=== PATIENT | female | born 1945 | race Caucasian/White ===

== ENCOUNTER → 2017-01-09 | Outpatient (CLI) | payer OTHER, MEDICARE | LOC: CIMAGING 10:14 | PROVIDERS: ATTEND Family Medicine | DX: Z12.31 Encounter for screening mammogram for malignant neoplasm of breast (principal) | CPT/HCPCS: G0202 ==

== ENCOUNTER → 2017-01-29 | Outpatient (CLI) | payer OTHER, MEDICARE | LOC: CIMAGING 10:11 | PROVIDERS: ATTEND Family Medicine | DX: R91.1 Solitary pulmonary nodule (principal); J43.2 Centrilobular emphysema; I25.10 Atherosclerotic heart disease of native coronary artery without angina pectoris | CPT/HCPCS: 71250-PO ==

== ENCOUNTER → 2017-10-24 | Outpatient (CLI) | payer OTHER, MEDICARE | LOC: BHFA 09:00 | PROVIDERS: ATTEND Internal Medicine Cardiovascular Disease | DX: I44.2 Atrioventricular block, complete (principal) | CPT/HCPCS: 78452; 93017; A9500; J2785 ==

== ENCOUNTER 2017-10-31 06:48 | Day surgery (SDC) | payer OTHER, MEDICARE ==
[2017-10-31] MEDS ORDERED: ASPIRIN EC 325 MG TAB PO ONE (06:55)
[2017-10-31] MEDS ORDERED: FAMOTIDINE 20 MG TAB PO ONE (06:55)
[2017-10-31] MEDS ORDERED: diphenhydrAMINE 25 MG CAP PO ONE (06:55)
[2017-10-31] MEDS ORDERED: DIAZEPAM 5 MG TAB PO ONE (06:55)
[2017-10-31] MEDS ORDERED: NS 1,000 ML IV ONE (06:55)
--- NOTE | 2017-10-31 07:21 | CPEKG ---
Heart Rate: 71 RR Interval: 845 P-R Interval: 220 QRSD Interval: 134 QT Interval: 412 QTC Interval: 448 P [place]: 43 QRS [place]: -67 T Wave [place]: 65 EKG Severity - ABNORMAL ECG - EKG Impression: ATRIAL-SENSED VENTRICULAR-PACED RHYTHM Electronically Signed By: Ravi Sanchez 01-Nov-2017 07:00:42
[2017-10-31 07:44] LABS: PLATELET COUNT 248 10^3/uL (150-400)
[2017-10-31 07:53] LABS: INR 1.08 (0.83-1.16); PROTIME(PATIENT) 14.2 SEC (12.0-15.0)
--- NOTE | 2017-10-31 08:23 | PDPROPOC ---
Sedation Plan of Care Sedation Plan of Care: vital signs stable, mental status noted, patient educated of risks, benefits, alternatives, patient can tolerate sedation ASA Classification: ASA 2 Planned drugs: fentanyl, midazolam Mallampati Score: Class 2 Mallampati Reference Image: Patient passed 3-3-2 rule?: Yes
--- NOTE | 2017-10-31 08:23 | PDHPUP ---
History & Physical Update H&P update statement: This history and physical update is based on an assessment of the patient which was completed after admission or registration (within 24 hours), but prior to the surgery/procedure. H&P update: H&P reviewed & patient examined, no change in patient's condition since H&P completed
--- NOTE | 2017-10-31 09:23 | PDDXCAT ---
Diagnostic Cath Note - . Date: 10/31/17 Medical Assistant Secretary: Travis Indication: Non-sustained (<30 sec) polymorphic ventricular tachycardia High-risk criteria on non-invasive testing: stress-induced moderate-size multiple perfusion defects - Procedure Access: right wrist Procedure: left heart catheterization, coronary angiography, left ventriculogram - Materials Left Heart Cath size: 4F Left Heart Cath materials: JL4.0, pigtail - Findings-Left Heart Catheterization LM: Unobstructed LAD: Unobstructed LCX: Dominant: Unobstructed RCA: Non dominant: Previously normal Ramus: Unobstructed EDP: 11 mm of mercury LVEF: 64% Wall motion: Normal: Complications: None Estimated blood loss: <50ml Closure method: TR Band Assessment: 1. No obstructive atherosclerosis seen to explain nuclear abnormalities. 2. Normal LV systolic function with normal filling pressures. Coronary sinus phase angiograms performed revealing lateral cardiac veins if needed for LV pacing. Plan: Continue medical therapy. Clinical follow-up Dr. Sanchez Patient Problems: Problems Problem Status Onset Ventricular arrhythmia Active Cardiac pacemaker in situ Active
[2017-10-31] MEDS ORDERED: fentaNYL 100 MCG/2 ML INJ ONE (09:38)
[2017-10-31] MEDS ORDERED: LIDOCAINE 1% 300 MG/30 ML SDV ONE (09:38)
[2017-10-31] MEDS ORDERED: IOPAMIDOL (ISOVUE-370) 150 ML BTL IV ONE (09:39)
[2017-10-31] MEDS ORDERED: VERAPAMIL 5 MG/2 ML VIAL ONE (09:39)
[2017-10-31] MEDS ORDERED: HEPARIN 10,000 UNIT/10 ML MDV (1,000 UNIT/ML) ONE (09:39)
== END 2017-10-31 16:32 | disposition home or self-care (01) ==
LOC: FCATH 06:48
PROVIDERS: ATTEND Internal Medicine Interventional Cardiology
PROC: B2151ZZ Fluoroscopy of Left Heart using Low Osmolar Contrast (ICD-10-PCS; principal; 2017-10-31)
PROC: B2111ZZ Fluoroscopy of Multiple Coronary Arteries using Low Osmolar Contrast (ICD-10-PCS; principal; 2017-10-31)
PROC: 4A023N7 Measurement of Cardiac Sampling and Pressure, Left Heart, Percutaneous Approach (ICD-10-PCS; principal; 2017-10-31)
DX: I44.2 Atrioventricular block, complete (principal); I25.10 Atherosclerotic heart disease of native coronary artery without angina pectoris; Z92.0 Personal history of contraception; Z87.891 Personal history of nicotine dependence
CPT/HCPCS: 93005; 93458; C1769; J1644; J3010; Q9967

== ENCOUNTER 2017-11-14 06:48 | Day surgery (SDC) | payer OTHER, MEDICARE ==
[~2017-11-14 06:48] MED LIST: VANCOMYCIN HCL/NORMAL SALINE 250 ML IV ONE; VANCOMYCIN PHARMACY TO DOSE MISC ONE
[2017-11-14] MEDS ORDERED: LIDOCAINE 1% 2 ML INJ ID PRN (07:21)
[2017-11-14] MEDS ORDERED: LR 1,000 ML IV ONE (07:21)
[2017-11-14] MEDS ORDERED: LIDOCAINE 1% 300 MG/30 ML SDV ONE (08:13)
[2017-11-14] MEDS ORDERED: BUPIVACAINE 0.5% 30 ML SDV ONE (08:13)
--- NOTE | 2017-11-14 08:40 | PDANEPAE ---
ANE History of Present Illness 71 year old with groin mass ANE Past Medical History - Cardiovascular History Hx Hypertension: Yes Hx Arrhythmias: Yes Hx Chest Pain: No Hx Coronary Artery / Peripheral Vascular Disease: Yes Hx CHF / Valvular Disease: No Hx Palpitations: No Cardiovascular History Comment: CHB NON FLOW LIMITING CAD - Pulmonary History Hx COPD: No Hx Asthma/Reactive Airway Disease: No Hx Recent Upper Respiratory Infection: No Hx Oxygen in Use at Home: No Hx Sleep Apnea: No Sleep Apnea Screening Result - Last Documented: Negative - Neurologic History Hx Cerebrovascular Accident: No Hx Seizures: No Hx Dementia: No - Endocrine History Hx Diabetes: No - Renal History Hx Renal Disorders: No - Liver History Hx Hepatic Disorders: No - Neurological & Psychiatric Hx Hx Neurological and Psychiatric Disorders: No - Cancer History Hx Cancer: No - Congenital Disorder History Hx Congenital Disorders: No - GI History Hx Gastrointestinal Disorders: Yes Gastrointestinal History Comment: IBS - Other Health History Other Health History: ENDOMETROSIS. BILAT GLAUCOMA. DENTURES UPPER - Chronic Pain History Chronic Pain: No - Surgical History Prior Surgeries: pacemaker 2004 ANE Review of Systems Review of Systems: - Exercise capacity METS (RN): 4 METS - Pacemaker Pacemaker Type: Permanent Pacer/Defib Pacemaker Supervisor Post Wave: [email or web address] Pacemaker Model: ENRYTHM Pacemaker Mode: DDDR Date Pacemaker Last Checked: 02/27/17 ANE Patient History - Allergies Allergies/Adverse Reactions: ampicillin [Ampicillin] Allergy (Verified 11/12/17 14:16) Unknown lamotrigine [From Lamictal] Allergy (Verified 11/12/17 14:16) Unknown Penicillins Allergy (Verified 11/12/17 14:16) Unknown phenytoin sodium [From Dilantin] Allergy (Verified 11/12/17 14:16) Unknown phenytoin sodium extended [From Dilantin] Allergy (Verified 11/12/17 14:16) Unknown - Home Medications Home medications: home medication list seen and reviewed Home Medications: Carvedilol [Coreg] 07/14/12 [Last Taken 11/13/17 20:00] Simvastatin 07/14/12 [Last Taken 11/13/17 21:00] Melatonin [Melatonin 3 MG (OTC)] 09/13/13 [Last Taken 11/13/17 22:00] Aspirin 81mg (*) 11/12/17 [Last Taken 11/13/17 07:00] Brimonidine 0.1% 11/12/17 [Last Taken 11/14/17 06:00] Estradiol 11/12/17 [Last Taken 11/13/17 07:00] Losartan Potassium 11/12/17 [Last Taken 11/13/17 07:00] Myrbetriq 11/12/17 [Last Taken 11/14/17 06:00] - NPO status NPO Status: no food or drink >8 hours NPO Since - Liquids (Date): 11/13/17 NPO Since - Liquids (Time): 20:00 NPO Since - Solids (Date): 11/13/17 NPO Since - Solids (Time): 20:00 - Anes Hx Anes Hx: no prior problems - Smoking Hx Smoking Status: Former smoker - Alcohol Use Alcohol Use: Rarely - Family Anes Hx Family Hx Anesthesia Complications: none ANE Labs/Vital Signs - Vital Signs Blood Pressure: 145/71 Heart Rate: 73 Respiratory Rate: 16 O2 Sat (%): 91 Height: 147.32 cm Weight: 61.235 kg ANE Physical Exam - Airway Neck exam: FROM Mallampati Score: Class 2 Mouth exam: normal dental/mouth exam - Pulmonary Pulmonary: no respiratory distress - Cardiovascular Cardiovascular: regular rate and rhythym - ASA Status ASA Status: III ANE Anesthesia Plan Anesthesia Plan: MAC
[2017-11-14] MEDS ORDERED: PROPOFOL/EMULSION 500 MG/50 ML BOTTLE IV ONE (08:53)
[2017-11-14] MEDS ORDERED: fentaNYL 100 MCG/2 ML INJ ONE (08:53)
[2017-11-14] MEDS ORDERED: PROMETHAZINE HCL 25 MG/ML INJ IVP PRN (09:41)
[2017-11-14] MEDS ORDERED: NALOXONE HCL 0.4 MG/ML INJ IVP PRN (09:41)
[2017-11-14] MEDS ORDERED: oxyCODONE IR 5 MG TAB PO PRN (09:41)
[2017-11-14] MEDS ORDERED: ONDANSETRON 4 MG/2 ML VIAL IVP PRN (09:41)
[2017-11-14] MEDS ORDERED: HYDROCODONE/APAP 5/325 TAB PO PRN (09:41)
[2017-11-14] MEDS ORDERED: fentaNYL 100 MCG/2 ML INJ IVP PRN (09:41)
[2017-11-14] MEDS ORDERED: ACETAMINOPHEN 500 MG TAB PO PRN (09:41)
--- NOTE | 2017-11-14 09:41 | POSTOPPROG ---
Post Op Note Date of Operation: 11/14/17 Surgeon: Sita De Jesus Anesthesiologist: warm Anesthesia: IV Sedation Pre-op Diagnosis: R groin mass Post-op Diagnosis: R femoral hernia Indication: 71 yo with painful groin mass Procedure: R femoral hernia with mesh Findings: R femoral hernia Inf/Abcess present in the surg proc area at time of surgery?: No EBL: Minimal Specimen(s): none
--- NOTE | 2017-11-14 10:05 | GOP ---
[f rep st] OPERATIVE REPORT DATE OF OPERATION: 11/14/2017 SURGEON: Sita De Jesus MD ANESTHESIOLOGIST: Manolo Saldivar MD/monitored anesthesia care with IV sedation. PREOPERATIVE DIAGNOSIS: Right groin mass. POSTOPERATIVE DIAGNOSIS: Right femoral hernia. PROCEDURE PERFORMED: Right femoral hernia repair with mesh. FINDINGS: Fat in the femoral canal. ESTIMATED BLOOD LOSS: 5 cc. INDICATIONS: The patient is a 71-year-old woman who noticed a painful lump in her right groin for qu ite some time. DESCRIPTION OF PROCEDURE: The patient was brought into the operating room, placed supine on the tabl e and monitored anesthesia care with IV sedation was performed. Her right groin was prepped and drap ed in usual sterile fashion. I infiltrated all sites with 0.5% Marcaine mixed with 1% lidocaine. I made an incision over the palpable mass. I deepened my dissection down through the subcutaneous tiss ues and did not encounter the mass. I felt the area of the inguinal ligament and just below this I c ould feel a mass in the femoral canal. I opened the inguinal ligament and I created superior and inf erior skin flaps and I was also able to reduce the fat in the femoral canal. I then placed a plug sy stem and sewed this in with 2-0 Prolene into the canal. I then reapproximated the inguinal ligament with 2-0 Vicryl. Tiffany's was closed with 2-0 Vicryl, skin closed with 3-0 Vicryl followed by 4-0 Mo nocryl, Mastisol, Steri-Strips sterile dressing were applied. She was awakened in the operating room , transferred to PACU in stable condition. /[id number]/MODL
[2017-11-14] MEDS ORDERED: HYDROCODONE/APAP 5/325 TAB ONE (10:20)
[2017-11-14 10:58] VITALS: BP 139/47
== END 2017-11-14 11:13 | disposition home or self-care (01) ==
LOC: FSGY 06:48
PROVIDERS: ATTEND Surgery
PROC: 0YU70JZ Supplement Right Femoral Region with Synthetic Substitute, Open Approach (ICD-10-PCS; principal; 2017-11-14 08:30)
DX: K41.90 Unilateral femoral hernia, without obstruction or gangrene, not specified as recurrent (principal); R10.31 Right lower quadrant pain; I44.2 Atrioventricular block, complete; I25.10 Atherosclerotic heart disease of native coronary artery without angina pectoris; I10 Essential (primary) hypertension; Z79.82 Long term (current) use of aspirin; Z87.891 Personal history of nicotine dependence; Z95.0 Presence of cardiac pacemaker; Z96.659 Presence of unspecified artificial knee joint; Z88.0 Allergy status to penicillin
CPT/HCPCS: C1781; J2704; J3010; J3370

== ENCOUNTER → 2018-02-23 | Outpatient (CLI) | payer OTHER, MEDICARE | LOC: CIMAGING 15:50 | PROVIDERS: ATTEND Family Medicine | DX: M79.661 Pain in right lower leg (principal); M79.89 Other specified soft tissue disorders | CPT/HCPCS: 93971-PO ==